=== PATIENT | male | born 1950 | race Caucasian/White ===

== ENCOUNTER 2019-10-26 07:22 | Day surgery (SDC) | payer MEDICARE ==
[2019-10-19 15:46] LABS: BASOPHILS % (AUTO) 0.5 % (0-1); EOSINOPHILS # (AUTO) 0.1 X10'3 (0-0.9); LYMPHOCYTES # (AUTO) 1.9 X10'3 (1.1-4.8); LYMPHOCYTES % (AUTO) 30.6 % (21-51); MEAN CORPUSCULAR HEMOGLOBIN 31.1 PG (27.0-31.0); MEAN CORPUSCULAR HGB CONC 33.9 g/dL (33.0-36.5); MEAN PLATELET VOLUME 7.3 FL (7.4-10.4); MONOCYTES # (AUTO) 0.5 X10'3 (0-0.9); MONOCYTES % (AUTO) 7.6 % (2-12); NEUTROPHILS # (AUTO) 3.7 X10'3 (1.8-7.7); NEUTROPHILS % (AUTO) 60.3 % (42-75); PRE OP HEMATOCRIT 44.1 % (42.0-52.0); PRE OP HEMOGLOBIN 14.9 g/dL (14.0-17.9); PRE OP PLATELET COUNT 306 X10'3 (140-440); RED CELL DISTRIBUTION WIDTH 13.2 % (11.5-14.5)
[2019-10-19 15:56] LABS: PRE OP PROTIME 10.3 SECONDS (9.0-12.0)
[2019-10-19 16:11] LABS: ALBUMIN/GLOBULIN RATIO 1.2 (1.1-1.5); ALKALINE PHOSPHATASE 76 IU/L (46-116); BLOOD UREA NITROGEN 14 MG/DL (7-18); BUN/CREATININE RATIO 14.3 (5.4-32.0); CALCIUM 9.4 MG/DL (8.5-10.1); CHLORIDE 108 MMOL/L (99-107); CREATININE 0.98 MG/DL (0.60-1.10); PRE OP ALT 22 U/L (30-65); PRE OP ANION GAP 8 (8-16); PRE OP AST 15 U/L (10-37); PRE OP BILIRUB, TOTAL 0.6 MG/DL (0.0-1.0); PRE OP GLUCOSE 91 MG/DL (70-104); PRE OP SODIUM 143 MMOL/L (135-145); TOTAL CARBON DIOXIDE 26.9 MMOL/L (24-32); TOTAL PROTEIN 7.3 G/DL (6.4-8.2); eGFR 76 ML/MIN
[~2019-10-26] VITALS: Ht 182.9 cm; Wt 93.2 kg
[2019-10-26] VITALS (14 sets, daily range): BP systolic 135–162; BP diastolic 60–103
[~2019-10-26 07:22] MED LIST: LIDOcaine 1% W/epiNEPHrine 1:100,000 20ml vial ONE; OMEP-50 PO; cefTAZidime 1gm inj ONE; cocaine 4% topical solution 4ml bottle ONE; famotidine 20mg tablet PO ONE; methylPREDNISolone acetate 80mg/ml inj**IM only ONE; mupirocin 2% ointment 22GM ONE; oxymetazoline 15 ML nasal spray NS ONE; oxymetazoline 15 ML nasal spray NS PRN; ringers solution, lacted 1,000 ML IV SCH
[2019-10-26] MEDS ORDERED: ringers solution, lacted 1,000 ML IV SCH (09:54)
[2019-10-26] MEDS ORDERED: morphine 4 MG/ML inj SYRINge IV PRN (09:55)
[2019-10-26] MEDS ORDERED: hydrALAZINE 20mg/ml inj. IV PRN (09:55)
[2019-10-26] MEDS ORDERED: ondansetron/PF 4mg/2ml inj IV PRN (09:55)
[2019-10-26] MEDS ORDERED: fentaNYL/PF 50MCG/1 ML 2ML syringe IV PRN ×2 (09:55)
[2019-10-26] MEDS ORDERED: morphine 2 MG/ML inj. syringe IV PRN (09:55)
[2019-10-26] MEDS ORDERED: sevoflurane 250ml liquid IH ONE (10:03)
[2019-10-26] MEDS ORDERED: hydrALAZINE 20mg/ml inj. IV ONE (10:03)
[2019-10-26] MEDS ORDERED: dexamethasone sod phosphate 10mg/ml inj ONE (10:03)
[2019-10-26] MEDS ORDERED: propofol inj 20 ML IV ONE (10:21)
[2019-10-26] MEDS ORDERED: LIDOcaine 2% (20mg/ml) 5ml vial ONE (10:21)
[2019-10-26] MEDS ORDERED: fentaNYL/PF 50MCG/1 ML 2ML syringe ONE (10:22)
[2019-10-26] MEDS ORDERED: midazolam 2 mg/2 ml injection ONE (10:22)
[2019-10-26] MEDS ORDERED: ondansetron/PF 4mg/2ml inj ONE (10:23)
[2019-10-26] MEDS ORDERED: BUPIVAcaine 0.5% W/EPI /PF 30ml vial IJ ONE (10:48)
[2019-10-26] MEDS ORDERED: ePHEDrine 50MG/ML INJ. ONE (11:45)
--- NOTE | 2019-10-26 11:58 | NUR ---
RECEIVED FROM OR VIA [facility] ACCOMPANIED BY ANESTHESIOLOGIST DR RICK, REPORT GIVEN. PT DROWSY BUT AROUSES EASILY WITH NO COMPLAINT OF PAIN AT THIS TIME. COTTENOIDS X3 IN BILATERAL NARES CDI. 20 GAUGE PIV R HAND PATENT AND RUNNING LR AT 100 ML/HR. SKIN PINK AND WARM, BRISK CAP REFILL, TOURE, ABD SOFT, RESTING COMFORTABLY.
[2019-10-26] MEDS: labetalol 20mg/4ml (5mg/ml) syringe IV PRN ×3 (12:04→12:20)
[2019-10-26] MEDS ORDERED: oxymetazoline 15 ML nasal spray NS SCH (13:00)
[2019-10-26] MEDS ORDERED: mupirocin 2% ointment 22GM TP SCH (13:00)
[2019-10-26] MEDS ORDERED: salt irrigation nasal spray 45 ML SPRAY NS PRN (13:00)
--- NOTE | 2019-10-26 13:58 | NUR ---
PT AWAKE AND ALERT WITH NO COMPLAINT OF PAIN AT THIS TIME. MUSTACHE DRESSING WITH SCANT SS DRAINAGE. 20 GAUGE PIV R HAND DC/D CATH TIP INTACT. TOLERATING FLUIDS, ABLE TO DRESS SELF, AMBULATE TO BATHROOM AND VOID. SKIN PINK AND WARM, BRISK CAP REFILL, TOURE, ABD SOFT. DISCHARGE INSTRUCTIONS GIVEN AND PT VERBALIZED UNDERSTANDING. TRANSPORTED VIA WHEELCHAIR TO SPOUSE IN PRIVATE VEHICLE TO HOME.
== END 2019-10-26 13:58 | disposition home or self-care (01) ==
LOC: PAS 07:22
PROVIDERS: ATTEND Otolaryngology
DX: J34.2 Deviated nasal septum (principal); J34.3 Hypertrophy of nasal turbinates; J32.8 Other chronic sinusitis; J34.89 Other specified disorders of nose and nasal sinuses; K21.9 Gastro-esophageal reflux disease without esophagitis; Z20.828 Contact with and (suspected) exposure to other viral communicable diseases; Z79.899 Other long term (current) drug therapy; Z79.01 Long term (current) use of anticoagulants; Z72.89 Other problems related to lifestyle
CPT/HCPCS: 30140; 30520; 31240; 31254; 31267; 36415; 61782; 80053; 82948; 85025; 85576; 85610; 85730; 87635; 93005; A6402; C9250; C9803; J0360; J0713; J1040; J1100; J2001; J2250; J2405; J2704; J3010; J7040; J7120; A4618; A7000; J3490